=== PATIENT | female | born 1950 | race Caucasian/White ===

== ENCOUNTER 2019-01-29 15:52 | Emergency (ER) | payer MEDICARE ==
[~2019-01-29] VITALS: Ht 172.7 cm; Wt 61.2 kg
--- NOTE | 2019-01-29 16:15 | NUR ---
Patient seen and examine by
[2019-01-29] MEDS ORDERED: ACETAMINOPHEN ES 500 MG TABLET PO ONE (16:30)
[2019-01-29] MEDS ORDERED: CLINDAMYCIN PHOSPHATE IV 900 MG in IV DEXTROSE 5% 100 ML IV ONE (16:30)
[2019-01-29] MEDS ORDERED: MORPHINE SULFATE 2 MG/1 ML DISP.SYRIN IV ONE (16:30)
[2019-01-29] MEDS ORDERED: ACETAMINOPHEN ES 500 MG TABLET ONE (16:32)
[2019-01-29] MEDS ORDERED: MORPHINE SULFATE 4 MG/1 ML DISP.SYRIN ONE (16:33)
[2019-01-29] MEDS ORDERED: CLINDAMYCIN 900MG/D5W 100ML IVPB **ER PYXIS ONLY IJ ONE (16:33)
[2019-01-29 16:40] LABS: BASOPHILS # (AUTO) 0.1 K/uL (0.0-8.0); BASOPHILS % (AUTO) 0.4 % (0.0-2.0); EOSINOPHILS # (AUTO) 0.6 K/uL (0.0-0.7); EOSINOPHILS % (AUTO) 4.4 % (0.0-7.0); HEMATOCRIT 37.4 % (31.2-41.9); HEMOGLOBIN 12.5 g/dL (10.9-14.3); LYMPHOCYTES % (AUTO) 13.5 % (20.5-51.5); MEAN CORPUSCULAR HEMOGLOBIN 28.5 uug (24.7-32.8); MEAN CORPUSCULAR HGB CONC 33 g/dL (32.3-35.6); MEAN CORPUSCULAR VOLUME 85.4 fL (75.5-95.3); MONOCYTES # (AUTO) 1.2 K/uL (2.0-10.0); NEUTROPHILS # (AUTO) 10.8 K/uL (1.8-8.9); NEUTROPHILS % (AUTO) 73.7 % (38.5-71.5); PLATELET COUNT (AUTO) 304 K/uL (179-408); RED BLOOD CELL COUNT(AUTO) 4.39 MIL/uL (3.63-4.92); WHITE BLOOD COUNT (AUTO) 14.7 K/uL (3.8-11.8)
[2019-01-29 16:45] LABS: POTASSIUM 4.1 mmol/L (3.5-5.1)
--- NOTE | 2019-01-29 17:00 | NUR ---
Dr. Winters at bedside for I&D. wound drained and packed by . area cleaned and covered by RN. Soto.
[2019-01-29 17:02] LABS: BILIRUBIN,DIRECT 0.1 mg/dL (0.0-0.2); BILIRUBIN,TOTAL 0.4 mg/dL (0.2-1.0)
--- NOTE | 2019-01-29 18:02 | NUR ---
Patient eating dinner at this time and only eating the rice requesting to have a chicken tray.
--- NOTE | 2019-01-29 18:03 | NUR ---
dcd instructions and prescription given to pt. who verbalized understanding. iv line dcd.
--- NOTE | 2019-01-29 18:16 | NUR ---
patient left room ambulatory AAOX4. vitals stable 99.0 oral temp Hr, 94, 107/59 rr18, 99% sat on RA.
[2019-01-29 19:32] VITALS: BP 115/66
== END 2019-01-29 18:00 | disposition home or self-care (01) ==
LOC: ER 15:52
DX: L02.31 Cutaneous abscess of buttock (principal); L03.317 Cellulitis of buttock
CPT/HCPCS: 10060; 36415; 80048; 80076; 83605; 85025; 87040 ×2; 96365; 96375; 99283; J2270; J3490; A4663; A9150

== ENCOUNTER 2020-03-22 18:26 | Emergency (ER) | payer MEDICARE ==
[~2020-03-22] VITALS: Ht 167.6 cm; Wt 59.0 kg
--- NOTE | 2020-03-22 18:52 | NUR ---
DR Stafford seen and examined the pt.
[2020-03-22] MEDS ORDERED: ONDANSETRON 4 MG/2 ML VIAL IV ONE (19:15)
[2020-03-22] MEDS ORDERED: IV NORMAL SALINE 1000 ML BAG IV ONE (19:15)
[2020-03-22] MEDS ORDERED: ONDANSETRON 4 MG/2 ML VIAL ONE (19:34)
[2020-03-22 19:43] LABS: BASOPHILS % (AUTO) 0.8 % (0.0-2.0); EOSINOPHILS # (AUTO) 0.1 K/uL (0.0-0.7); HEMATOCRIT 36.6 % (31.2-41.9); HEMOGLOBIN 12.7 g/dL (10.9-14.3); LYMPHOCYTES # (AUTO) 1.2 K/uL (20.0-40.0); LYMPHOCYTES % (AUTO) 28.6 % (20.5-51.5); MEAN CORPUSCULAR HEMOGLOBIN 30.1 uug (24.7-32.8); MEAN CORPUSCULAR HGB CONC 35 g/dL (32.3-35.6); MEAN CORPUSCULAR VOLUME 86.7 fL (75.5-95.3); MONOCYTES # (AUTO) 0.4 K/uL (2.0-10.0); MONOCYTES % (AUTO) 10.4 % (0.0-11.0); NEUTROPHILS # (AUTO) 2.5 K/uL (1.8-8.9); NEUTROPHILS % (AUTO) 58.2 % (38.5-71.5); PLATELET COUNT (AUTO) 210 K/uL (179-408); RED BLOOD CELL COUNT(AUTO) 4.22 MIL/uL (3.63-4.92); WHITE BLOOD COUNT (AUTO) 4.2 K/uL (3.8-11.8)
[2020-03-22 19:50] LABS: CREATININE 0.9 mg/dL (0.6-1.3); POTASSIUM 4.2 mmol/L (3.5-5.1)
[2020-03-22 19:56] LABS: BILIRUBIN,DIRECT 0.1 mg/dL (0.0-0.2); BILIRUBIN,TOTAL 0.3 mg/dL (0.2-1.0)
--- NOTE | 2020-03-22 20:30 | NUR ---
Patient states "I feel alot better now."
--- NOTE | 2020-03-22 20:47 | NUR ---
IV removed. Catheter intact and site benign. Pressure and 4x4 gauze applied to site. No bleeding noted.
--- NOTE | 2020-03-22 20:50 | NUR ---
Patient discharged to home in stable condition. Written and verbal after care instructions given. Patient verbalizes understanding of instructions. Stressed follow up or return to ER for worsening s/s.
[2020-03-22 21:13] VITALS: BP 158/89
== END 2020-03-22 21:00 | disposition home or self-care (01) ==
LOC: ER 18:35
DX: R11.2 Nausea with vomiting, unspecified (principal); R19.7 Diarrhea, unspecified; R10.9 Unspecified abdominal pain; R55 Syncope and collapse; Z59.0 Homelessness; R03.0 Elevated blood-pressure reading, without diagnosis of hypertension
CPT/HCPCS: 71045; 80048; 80076; 85025; 85730; 93005; 96361; 96374; 99285; J2405; A4663; J7030